=== PATIENT | male | born 1985 | race Hispanic/Latino ===

== ENCOUNTER 2022-07-12 00:34 | Emergency (ER) | payer SELFPAY ==
[~2022-07-12] VITALS: Ht 177.8 cm; Wt 99.0 kg
[2022-07-12] VITALS (21 sets, daily range): BP systolic 100–128; BP diastolic 52–83
[2022-07-12] MEDS ORDERED: PRILOSEC20 MG/CAP PO (01:05)
[2022-07-12] MEDS ORDERED: LEXAPRO10 MG PO (01:08)
[2022-07-12] MEDS ORDERED: BUSPIRONE15 MG PO (01:09)
[2022-07-12 02:00] LABS: BASO% 0.3 % (0-3); EOS% 1.2 % (0-8); HEMATOCRIT 45.9 % (39.0-50.0); HEMOGLOBIN 14.8 g/dl (14.0-18.0); IMMATURE GRANULOCYTES 0.3 % (0.0-5.0); LYMPH% 30.7 % (15-41); MEAN CELL VOLUME 93.3 fL CALC (80.0-100.0); MEAN CORPUSCULAR HGB 30.1 pG CALC (26.0-32.0); MEAN CORPUSCULAR HGB CONC 32.2 g/dL CAL (32.0-36.0); MONO% 12.4 % (2-13); NEUT# 3.78 thou/uL (1.82-7.42); NEUT% 55.1 % (42-76); RED BLOOD COUNT 4.92 mill/uL (4.70-6.10); RED CELL DISTRI WIDTH 12.8 % (11.5-15.5)
[2022-07-12 02:13] LABS: ALBUMIN 4.3 g/dL (3.2-5.0); ALKALINE PHOSPHATASE 88 u/l (38-126); ANION GAP 11 (6-22 (CALC)); BILIRUBIN, TOTAL 0.2 mg/dL (0.2-1.3); BUN 18 mg/dL (9-20); BUN/CREATININE RATIO 17 (12-20 (CALC)); CARBON DIOXIDE 29 mmol/l (22-30); CHLORIDE 105 mmol/l (95-108); CREATININE 1.1 mg/dL (0.7-1.3); GFR FOR AFR.AMER. > 60 ML/MIN (>=60 (CALC)); GFR OTHER RACES > 60 ML/MIN (>=60 (CALC)); POTASSIUM 3.8 mmol/l (3.5-5.1); SGOT/AST 26 u/l (17-59); SODIUM 141 mmol/l (137-146); TOTAL PROTEIN 7.6 g/dL (6.3-8.2)
[2022-07-12] MEDS ORDERED: NAPROXEN500 MG PO (05:43)
== END 2022-07-12 06:23 | disposition home or self-care (01) | DRG 313 ==
LOC: ED 00:34
PROVIDERS: Emergency Medicine
DX: R07.89 Other chest pain (principal); K21.9 Gastro-esophageal reflux disease without esophagitis

== ENCOUNTER 2023-02-11 13:32 | Emergency (ER) | payer OTHER ==
[~2023-02-11] VITALS: Ht 177.8 cm; Wt 91.0 kg
[~2023-02-11 13:32] MED LIST: BUSPIRONE15 MG PO; LEXAPRO10 MG PO; NAPROXEN500 MG PO; PRILOSEC20 MG/CAP PO
[2023-02-11] MEDS ORDERED: XANAX0.5 MG PO (13:49)
[2023-02-11 14:35] LABS: URINE BILIRUBIN - DIPSTICK Negative (NEGATIVE); URINE BLOOD DIPSTICK Negative (NEGATIVE); URINE GLUCOSE - DIPSTICK Negative (NEGATIVE); URINE KETONE Negative (NEGATIVE); URINE LEUK ESTERASE Negative (NEGATIVE); URINE NITRITE - DIPSTICK Negative (Negative); URINE PH 6.5 (4.5-8.0); URINE PROTEIN - DIPSTICK Negative (NEG-TRACE); URINE SPECIFIC GRAVITY 1.015; URINE UROBILINOGEN - DIPSTICK 0.2 E.U./dL (0.2)
[2023-02-11 14:37] LABS: URINE COLOR Yellow
[2023-02-11] MEDS ORDERED: LEVOFLOXACIN500MG PO (16:14)
[2023-02-11 16:35] VITALS: BP 122/71
== END 2023-02-11 16:46 | disposition home or self-care (01) | DRG 730 ==
LOC: ED 13:32
PROVIDERS: Nurse Practitioner
DX: N43.3 Hydrocele, unspecified (principal); F41.9 Anxiety disorder, unspecified

== ENCOUNTER 2024-01-21 16:48 | Emergency (ER) | payer OTHER ==
[~2024-01-21] VITALS: Ht 177.8 cm; Wt 86.0 kg
[~2024-01-21 16:48] MED LIST changes: +CARAFATE1 GM PO; +LEVOFLOXACIN500MG PO; +PEPCID AC10 MG PO; +PRILOSEC OTC20 MG PO; +XANAX0.5 MG PO
[2024-01-21 17:08] VITALS: BP 133/74
[2024-01-21 17:33] LABS: BASO% 0.5 % (0-3); EOS% 1.6 % (0-8); HEMATOCRIT 46.7 % (39.0-50.0); HEMOGLOBIN 15.3 g/dl (14.0-18.0); IMMATURE GRANULOCYTES 0.2 % (0.0-5.0); LYMPH% 42.8 % (15-41); MEAN CELL VOLUME 94.2 fL CALC (80.0-100.0); MEAN CORPUSCULAR HGB 30.8 pG CALC (26.0-32.0); MEAN CORPUSCULAR HGB CONC 32.8 g/dL CAL (32.0-36.0); MONO% 12.1 % (2-13); NEUT# 2.68 thou/uL (1.82-7.42); NEUT% 42.8 % (42-76); RED BLOOD COUNT 4.96 mill/uL (4.70-6.10); RED CELL DISTRI WIDTH 12.5 % (11.5-15.5)
[2024-01-21 17:35] LABS: URINE BILIRUBIN - DIPSTICK Negative (NEGATIVE); URINE BLOOD DIPSTICK Negative (NEGATIVE); URINE GLUCOSE - DIPSTICK Negative (NEGATIVE); URINE KETONE Negative (NEGATIVE); URINE LEUK ESTERASE Negative (NEGATIVE); URINE NITRITE - DIPSTICK Negative (Negative); URINE PH 6.5 (4.5-8.0); URINE PROTEIN - DIPSTICK Negative (NEG-TRACE); URINE SPECIFIC GRAVITY 1.025; URINE UROBILINOGEN - DIPSTICK 0.2 E.U./dL (0.2)
[2024-01-21 17:38] LABS: URINE COLOR Yellow
[2024-01-21] MEDS ORDERED: KETOROLAC TROMETHAMINE 30 MG/ML SDV IV ONE (17:40)
[2024-01-21] MEDS ORDERED: METHOCARBAMOL 1,000 MG/10 ML VIAL IV ONE (17:40)
[2024-01-21] MEDS ORDERED: SODIUM CHLORIDE 0.9% 1,000 ML IV ONE (17:40)
[2024-01-21 17:50] LABS: ALBUMIN 4.7 g/dL (3.2-5.0); POTASSIUM 4.1 mmol/l (3.5-5.1)
[2024-01-21 17:51] LABS: BILIRUBIN, TOTAL 0.5 mg/dL (0.2-1.3)
[2024-01-21 18:31] VITALS: BP 108/62
[2024-01-21 19:00] VITALS: BP 116/75
[2024-01-21] MEDS ORDERED: LIDOcaine HCl 1% (Local Anesth.) 20 ML VIAL IM STA (19:00)
[2024-01-21] MEDS ORDERED: AZITHROMYCIN 250 MG/TAB PO ONE (19:00)
[2024-01-21] MEDS ORDERED: cefTRIAXone SODIUM 1 GM/VIAL SDV IM ONE (19:00)
[2024-01-21 19:30] VITALS: BP 114/71
[2024-01-21 20:00] VITALS: BP 120/89
[2024-01-21 20:52] VITALS: BP 120/89
== END 2024-01-21 20:52 | disposition home or self-care (01) | DRG 392 ==
LOC: ED 16:48
PROVIDERS: Nurse Practitioner
DX: R10.2 Pelvic and perineal pain (principal); K21.9 Gastro-esophageal reflux disease without esophagitis; F41.9 Anxiety disorder, unspecified
CPT/HCPCS: Q9967